=== PATIENT | male | born 2000 | race Caucasian/White ===

== ENCOUNTER → 2023-02-14 | Outpatient (REF) | payer BC ==
[2023-02-14 19:22] LABS: GC DNA AMPLIFICATION NEGATIVE (NEGATIVE)
== END ==
LOC: M LAB REF 17:32
PROVIDERS: ATTEND Physician Assistant
DX: R30.0 Dysuria (principal)

== ENCOUNTER 2024-11-29 20:49 | Emergency (ER) | payer OTHER ==
[~2024-11-29] VITALS: Ht 180.3 cm; Wt 83.2 kg
[2024-11-30 03:13] VITALS: BP 133/71; TEMP 97.7; O2SAT 99
== END 2024-11-30 03:15 | disposition home or self-care (01) ==
LOC: M ED 20:49
DX: S42.115A Nondisplaced fracture of body of scapula, left shoulder, initial encounter for closed fracture (principal); S42.025A Nondisplaced fracture of shaft of left clavicle, initial encounter for closed fracture; Y92.9 Unspecified place or not applicable; Y93.72 Activity, wrestling; Y99.9 Unspecified external cause status; F17.290 Nicotine dependence, other tobacco product, uncomplicated; F10.10 Alcohol abuse, uncomplicated